=== PATIENT | female | born 1960 | race Caucasian/White ===

== ENCOUNTER 2016-09-13 06:26 | Inpatient (IN) | payer BC ==
--- NOTE | 2016-08-30 20:45 | HP ---
PREOPERATIVE HISTORY AND PHYSICAL: DATE OF ADMISSION: 09/13/16 - This patient is scheduled for AA admission by Dr. Marvin on 09/13/16. DATE OF PREOPERATIVE HISTORY AND PHYSICAL EXAMINATION: 08/29/16. ATTENDING SURGEON: Dr. Devin Marvin (dictated by Caridad Florian NP). CHIEF COMPLAINT: Obesity. HISTORY OF PRESENT ILLNESS: The patient is a 56-year-old female with a body mass index of 37.7 and obesity-related comorbidities of type 2 diabetes; obstructive sleep apnea, requiring CPAP; gastroesophageal reflux disease; back pain; stress incontinence; bilateral knee pain. She has tried and failed attempts at weight loss with conventional means and is seeking bariatric surgery as a more permanent solution to her obesity and comorbidities. She completed medically-supervised weight loss at [facility] and has completed all of the necessary preoperative diagnostic evaluations and testing and has been deemed an appropriate candidate by Dr. Marvin to proceed with laparoscopic Solitario-en-Y gastric bypass and laparoscopic cholecystectomy. Dr. Marvin has described the nature of the surgical procedures, the expected results of the surgery, the relevant risks, benefits, and alternatives, and today, I reviewed the typical hospitalization as well as the expected postoperative care and recovery including adherence to the stages of the postoperative diet, exercise, vitamin and mineral supplementation, and followup appointments at [facility] and [facility]. The patient has had a chance to ask questions and stated that she understands the information and is satisfied with the answers given to her questions. She will sign surgical consent on the day of surgery. She started her preoperative diet on 08/30/16. PAST MEDICAL HISTORY: Significant for type 2 diabetes, diagnosed in spring 2015 ; hypothyroidism; obstructive sleep apnea, requiring CPAP; asthma; gastroesophageal reflux disease; stress incontinence; bilateral knee pain and back pain. PAST SURGICAL HISTORY: D and C, March 2015; carpal tunnel release, October 2013 ; right knee arthroscopy, May 2012; right leg venous ablation, June 2009; right fourth hammertoe surgery, August 2003; excision of left wrist ganglion, September 1999; tubal ligation, June 1987. MEDICATIONS: 1. Levothyroxine 50 mcg daily in the morning. 2. Losartan 25 mg p.o. daily in the morning. 3. Metformin 500 mg p.o. b.i.d. and I instructed the patient to hold metformin on 09/12/16 and on the morning of surgery and if her blood sugar is falling below 80 consistently, to discuss holding the metformin during the preoperative diet with her primary care provider. 4. Vitamin D3 daily. 5. Nasonex daily. 6. Vitamin B12 500 mcg every other day. 7. Pataday eye drops daily. ALLERGIES: No known drug allergies. Tylenol with Codeine has caused nausea and she does have seasonal allergies. FAMILY HISTORY: Significant for mother with thyroid disease, diabetes, hypertension, lung cancer, and heart disease. Father with history of heart disease. The patient's sister has a history of hypertension. There is a family history of diabetes in a sister and a history of stroke and her brother had melanoma. The patient's son and daughter also have diabetes and hypertension. No known anesthesia complications, bleeding tendencies, or clotting disorders. SOCIAL HISTORY: She is and lives with her significant other. 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 She exercises by walking 30 minutes a day. She is a former smoker. She denies the use of alcohol or other substances. REVIEW OF SYSTEMS: She denies any chest pain, pressure, palpitations, or unusual shortness of breath. She denies any history of deep vein thrombosis or pulmonary embolism. She denies any previous anesthesia complications. She has a history of mild asthma with no recent flare-ups. She has a history of gastroesophageal reflux and underwent upper endoscopy which revealed esophagitis and a small hiatal hernia. She had an abdominal ultrasound, which revealed a 3.5-cm gallstone and she will undergo laparoscopic cholecystectomy at the same setting as the bariatric procedure. Her upper GI series revealed a small hiatal hernia and a well-defined Schatzki's ring. She denies any bleeding tendencies and has never received a blood transfusion. She denies any dysuria and denies any chronic constipation. PHYSICAL EXAMINATION GENERAL SURVEY: The patient is a 56-year-old female, obese, well developed, in no acute distress. VITAL SIGNS: Height 70 inches, weight 263 pounds, body mass index 37.7, blood pressure 118/74, pulse 68 and regular, respiratory rate 16, temperature 97.2 tympanic. HEENT: Benign. NECK: Supple. No cervical lymphadenopathy. No thyromegaly. BACK: No CVA tenderness. LUNGS: Breath sounds bilaterally clear and equal. HEART: Regular rate and rhythm. No murmurs or rubs appreciated. ABDOMEN: Obese, soft, and nondistended. Nontender throughout. No obvious masses or organomegaly. Negative Smith's sign. No umbilical hernia. PELVIC AND RECTAL: Exams deferred. EXTREMITIES: Warm without edema or skin ulcerations. NEUROLOGIC: Alert and oriented x3. Steady gait. SKIN: Warm, dry, intact. IMPRESSION: 1. Morbid obesity. 2. Cholelithiasis. 3. Type 2 diabetes. 4. Obstructive sleep apnea, requiring CPAP. 5. Gastroesophageal reflux disease. PLAN: AA admission to Dr. Marvin' service on 09/13/16, for laparoscopic Solitario-en-Y gastric bypass and laparoscopic cholecystectomy. CARIDAD FLORIAN NP CC: Dr. [facility], [facility]; Myrtle Brown NP * [id number]/[facility] #: [id number] [facility]PIT[facility]evyn
[~2016-09-13 06:26] MED LIST: Buffered Lidocaine 1% SYR 3ML* 3 ML/SYR SYRINGE INTRADERM ONE; Dexamethasone IV* 4 MG/ML 1 ML (4 MG) IV SLOW PU ONE; Famotidine IV* 10 MG/ML 2 ML (20 mg) IV ONE
[2016-09-13] MEDS ORDERED: Famotidine IV* 10 MG/ML 2 ML (20 mg) ONE (06:47)
[2016-09-13] MEDS ORDERED: Dexamethasone IV* 4 MG/ML 1 ML (4 MG) ONE (06:48)
[2016-09-13] MEDS ORDERED: Heparin VIAL(*) 5000 UNITS/ML VIAL (FIVE THOUSAND) ONE (06:48)
[2016-09-13] MEDS ORDERED: ceFAZolin 1 GM in Dextrose (*) 1 GM/50 ML BAG IVPB ONE (06:48)
[2016-09-13] MEDS ORDERED: Buffered Lidocaine 1% SYR 3ML* 3 ML/SYR SYRINGE ONE (06:48)
[2016-09-13] MEDS ORDERED: ceFAZolin 2 GM PREMIX (*) 2 GM/50 ML BAG IVPB ONE (06:48)
[2016-09-13] MEDS ORDERED: Clindamycin 900 MG IVPREMIX(* 900 MG/50 ML SDV IV ONE (07:18)
[2016-09-13] MEDS ORDERED: Methylene Blue 1%* 10 ML VIAL ONE (07:23)
[2016-09-13] MEDS ORDERED: Bupivacaine 0.5% W/EPI SDV* 30 ML VIAL ONE (07:24)
[2016-09-13] MEDS ORDERED: Lidocaine 2% MPF* 2 ML VIAL ONE (07:32)
[2016-09-13] MEDS ORDERED: Propofol* 10 MG/ML 20 ML BTL IV PUSH ONE (07:32)
[2016-09-13] MEDS ORDERED: Midazolam* 1 MG/ML 5 ML VIAL (5 MG) ONE (07:33)
[2016-09-13] MEDS ORDERED: Rocuronium* 10 MG/ML VIAL ONE (07:33)
[2016-09-13] MEDS ORDERED: fentaNYL* 50 MCG/ML 5 ML VIAL (250 MCG VIAL) ONE (07:33)
[2016-09-13] MEDS ORDERED: EPHEDrine (Pressors)* 50 MG/ML VIAL ONE (08:22)
[2016-09-13] MEDS ORDERED: Morphine INJ* 2 MG/ML 1 ML CARPUJECT IV PRN (08:42)
[2016-09-13] MEDS ORDERED: Scopolamine 1.5 mg* PATCH TRANSDERM PRN (08:42)
[2016-09-13] MEDS ORDERED: Acetaminophen IV 1GM/100ML * 100 ML IVPB ONE (08:42)
[2016-09-13] MEDS ORDERED: PROCHLORPERAZINE INJ 5 MG/ML 2 ML VIAL IV PRN (08:42)
[2016-09-13] MEDS ORDERED: Ketorolac INJ* 30 MG/ML 1 ML VIAL ONE (09:16)
[2016-09-13] MEDS ORDERED: fentaNYL* 50 MCG/ML 2 ML VIAL (100 MCG VIAL) ONE ×2 (09:17→11:54)
[2016-09-13] MEDS ORDERED: Ondansetron INJ* 2 MG/ML VIAL ONE ×2 (10:01→13:12)
[2016-09-13] MEDS ORDERED: HYDROcodone/ACET. 7.5/325 LIQ* 15 ML UDC PO PRN (10:37)
[2016-09-13] MEDS ORDERED: diPHENhydraMINE IV* 50 MG/ML 1 ml VIAL (BENADRYL) SLOW PUSH PRN (10:37)
[2016-09-13] MEDS ORDERED: Ondansetron INJ* 2 MG/ML VIAL IV PRN (10:37)
[2016-09-13] MEDS ORDERED: HYDROmorphone INJ* 1 MG/ML CARPUJECT SYRINGE IV PRN (10:37)
[2016-09-13] MEDS ORDERED: Acetaminophen ADULT LIQ* 650 MG/20.3 ML UDC PO PRN (10:37)
[2016-09-13] MEDS ORDERED: Fluticasone NASAL SPRAY 50MCG* 16 gm SPRAY BTL BOTH NARES PRN (10:40)
[2016-09-13] MEDS ORDERED: Acetaminophen IV 1GM/100ML * 100 ML ONE (10:40)
[2016-09-13] MEDS ORDERED: Albuterol HFA INHALER* 8 gm MDI INH PRN (10:40)
--- NOTE | 2016-09-13 10:45 | SURGPN ---
Brief Operative Note - Surgery Procedures: PREOP DX: MORBID OBESITY AND GALLSTONES POSTOP DX: SAME PROC: LRYGB AND LAP LETY SURG: MECENAS ASSIST: MARSHAL REDMANS: FLAQUITO/STEVEN EBL: 50 ML IVF: LR SPEC: GB DRAIN: NONE COMPL: NONE COND: STABLE TO RR EXTUBATED
[2016-09-13] MEDS ORDERED: PROCHLORPERAZINE INJ 5 MG/ML 2 ML VIAL ONE (11:20)
[2016-09-13] MEDS ORDERED: Scopolamine 1.5 mg* PATCH ONE (11:40)
[2016-09-13] MEDS: fentaNYL* 50 MCG/ML 2 ML VIAL (100 MCG VIAL) IV PRN ×2 (11:56→12:19)
[2016-09-13] MEDS: Insulin REGULAR(*) 1 UNITS UNIT SUBCUT SCH ×3 (13:36→23:55)
[2016-09-13] MEDS: Heparin VIAL(*) 5000 UNITS/ML VIAL (FIVE THOUSAND) SUBCUT SCH ×2 (14:28→22:14)
[2016-09-13] MEDS: Famotidine IV * 20 MG in NS 0.9% 100 ML* 100 ML IVPB SCH (21:00)
[2016-09-14] MEDS: Ketorolac INJ* 30 MG/ML 1 ML VIAL IV PRN ×2 (03:34→19:16)
[2016-09-14] MEDS: Heparin VIAL(*) 5000 UNITS/ML VIAL (FIVE THOUSAND) SUBCUT SCH ×3 (06:20→22:32)
[2016-09-14] MEDS: Insulin REGULAR(*) 1 UNITS UNIT SUBCUT SCH ×4 (06:23→23:57)
[2016-09-14] MEDS ORDERED: Famotidine IV* 10 MG/ML 2 ML (20 mg) ONE ×2 (09:33→21:20)
[2016-09-14] MEDS: Famotidine IV * 20 MG in NS 0.9% 100 ML* 100 ML IVPB SCH ×2 (09:37→21:26)
[2016-09-14] MEDS: Olopatadine 0.2% (NF) 1 DROP BTL BOTH EYES SCH (09:38)
[2016-09-14] MEDS: Lidocaine PATCH 5%* 1 PATCH TRANSDERM SCH (09:38)
[2016-09-14] MEDS: D5W 1/2 NS KCl 20 Meq 1000 ML* 1,000 ML IV SCH ×2 (11:15→19:15)
--- NOTE | 2016-09-14 11:58 | PN ---
Progress Note - Progress Note SOAP: Subjective: Having no N/V or pain today. Discussed surgery. Objective: Vital Signs Temp 98.0 F 09/14/16 07:19 Pulse 54 09/14/16 07:19 Resp 18 09/14/16 08:00 BP 128/47 09/14/16 07:19 Pulse Ox 98 09/14/16 08:15 Intake & Output 09/13/16 09/14/16 09/14/16 18:59 06:59 18:59 Intake Total 3025 2070 918 Output Total 1150 800 Balance 1875 1270 918 Intake: IV Fluids 2950 1965 858 CEFAZOLIN 3GM 100 CLINDAMYCIN 900 MG 50 LR 2800 1965 858 IVPB 75 105 60 LR 75 Pepcid 105 60 Oral 0 0 Output: Urine 350 Ramirez 1150 450 NAD Abd: dressings c/d/i; soft; min tender. Laboratory Results - last 24 hr 09/13/16 09/13/16 09/13/16 11:10 17:57 23:51 POC Glucose (mg/dL) 183 H 162 H 128 H 09/14/16 06:15 POC Glucose (mg/dL) 94 Assessment: POD#1 s/p LRYGB/LapCCY. Doing well. Plan: Diet advanced. Ramirez out. Home AM.
[2016-09-14] MEDS ORDERED: Levothyroxine TAB* 50 MCG TAB PO SCH (21:00)
[2016-09-15] MEDS: D5W 1/2 NS KCl 20 Meq 1000 ML* 1,000 ML IV SCH (03:36)
--- NOTE | 2016-09-15 04:11 | OP ---
OPERATIVE REPORT: DATE OF OPERATION: 09/13/16 - SSU 331-01 DATE OF : 56 SURGEON: Devin Marvin MD IMAGING TECHNICIAN: Shady Walsh MD ANESTHESIOLOGIST: Dr. Aparicio. ANESTHESIA: General endotracheal. PRE-OP DIAGNOSIS: Morbid obesity and gallstones. POST-OP DIAGNOSIS: Morbid obesity and gallstones. OPERATIVE PROCEDURE: Laparoscopic Solitario-En-Y gastric bypass and laparoscopic cholecystectomy. ESTIMATED BLOOD LOSS: Minimal. IV FLUIDS: Crystalloids. SPECIMENS: Gallbladder. DRAINS: None. COMPLICATIONS: None. COUNTS: Instrument, needle, and sponge counts were correct. DESCRIPTION OF PROCEDURE: The patient was brought to the operating room and was placed on the table supine. Sequential compression devices were placed on both lower extremities. General anesthesia was administered. A Ramirez catheter was placed. She was positioned and padded appropriately. She was prepped and dapped in the usual sterile fashion. She was administered appropriate intravenous antibiotics. Time-out was performed. Local anesthetic was infiltrated into the skin and soft tissue prior to making the incision. Entry to the abdomen was through a left upper quadrant incision accommodating a 12-mm optical trocar. After accessing the peritoneal cavity, carbon dioxide was insufflated to a pressure of 15 mmHg. Under direct visualization, a 12-mm trocar was placed in the right upper quadrant. A 5-mm trocar was placed in the right upper quadrant medially and inferior to this, a 5 -mm trocar was placed in the subxiphoid position and an additional 12-mm trocar was placed in the supraumbilical midline. The gallbladder was addressed first. This appeared to have chronic inflammatory changes. It was grasped with the fundus and retracted superiorly and the infundibulum was identified. The adhesions to this were taken down using a combination of sharp and blunt dissection. The peritoneum investing the gallbladder was dissected free after being scored with cautery and peeled away. The infundibulocystic triangle was dissected out medially and laterally, the borders of the gallbladder were identified and the cystic artery was identified as well. All structures were dissected out and critical view obtained prior to clipping the cystic duct and cystic artery. After clipping these structures and dividing them, the gallbladder was freed from its attachments to the liver bed using the Hook cautery staying in an avascular plain. The gallbladder was placed into an endoscopic retrieval bag and positioned above the liver for removal at the end of the case. A 5-mm trocar was then placed in the left lower quadrant laterally and a Pete liver retractor was placed percutaneously in the subxiphoid position used to elevated the left lobe of the liver. Gastric anatomy appeared normal. The mobilization of the stomach at the angle of His was performed bluntly exposing the left ilda of diaphragm. Next, perigastric dissection was undertaken on the lesser curvature to enter the lesser sac and then with several firing of the Endo SEMAJ staple with prince cartridges, the gastric pouch was created approximating 20 mL volume. The staple lines were noted to be intact and hemostatic. The omentum was mobilized from the lower midline and retracted superiorly along with the transverse colon and ligament of Treitz was identified. The jejunum was measured out approximately 40 cm and at this point , it was tacked to the left lateral staple line on the gastric pouch with interrupted 3-0 silks. The gastrojejunal anastomosis was then performed with the Endo SEMAJ stapler using a 30-mm prince cartridge. The anastomosis was completed by closing the common gastroenterotomy with the use of a 3-0 Maxon in running. The closure was performed over a 36-Latvian gastric lavage tube. After completing the anastomosis, the bowel was divided to the left side of the gastric pouch with the Endo SEMAJ stapler with a prince cartridge and then the anastomosis was tested with methylene blue dye solution instilled through the gastric lavage tube. No leaks were identified. The Solitario-limb was then measured out 75 cm and brought up to the biliopancreatic limb, where a jejunojejunostomy was created with a 60-mm prince stapler with closure of that enterotomy with 3-0 Maxon in a running fashion. The mesenteric defect was closed with 3-0 silk in a running fashion. The gallbladder was then retrieved through the supraumbilical site, which was then closed with 0 Polysorb using Endo Close device. Having assured hemostasis, the ports were removed under direct visualization and carbon dioxide was released. The skin incisions were all closed with roberto and dressings were applied. The patient tolerated the procedure well. She was extubated and transferred to the recovery room in stable condition. CC: LONA Nagy* [id number]/[facility] #: [id number] ZEINAB
[2016-09-15] MEDS: Heparin VIAL(*) 5000 UNITS/ML VIAL (FIVE THOUSAND) SUBCUT SCH (05:41)
[2016-09-15] MEDS: Insulin REGULAR(*) 1 UNITS UNIT SUBCUT SCH (05:45)
[2016-09-15 06:55] VITALS: BP 141/59
[2016-09-15] MEDS: Olopatadine 0.2% (NF) 1 DROP BTL BOTH EYES SCH (08:46)
[2016-09-15] MEDS ORDERED: Famotidine IV* 10 MG/ML 2 ML (20 mg) ONE (08:49)
[2016-09-15] MEDS: Famotidine IV * 20 MG in NS 0.9% 100 ML* 100 ML IVPB SCH (08:54)
[2016-09-15] MEDS: Lidocaine PATCH 5%* 1 PATCH TRANSDERM SCH (08:54)
--- NOTE | 2016-09-15 09:05 | PN ---
Progress Note - Progress Note Note: S: POD #2. Doing well. No sig pain. Donta arun clears to goal. No N/V or regurg; passing flatus. Ambulating. Voiding well. O: Vital Signs - 8 hr 09/15/16 09/15/16 03:24 06:43 Temperature 98.0 F 98.0 F Pulse Rate 52 52 Respiratory 18 16 Rate Blood Pressure 149/85 141/59 (mmHg) O2 Sat by Pulse 99 97 Oximetry Intake and Output Last 24 Hours 09/13/16 09/14/16 09/15/16 09/16/16 06:59 06:59 06:59 06:59 Intake Total 5095 3687 Output Total 1950 3050 600 Balance 3145 637 -600 Weight 246 lb Intake: IV Fluids 4915 2842 CEFAZOLIN 3GM 100 CLINDAMYCIN 900 MG 50 D51/2NS 20KCL 1984 LR 4765 858 IVPB 180 165 LR 75 Pepcid 105 165 Oral 0 680 Output: Urine 350 3050 600 Ramirez 1600 Heart: reg (sl atul) Lungs: clear Abd: +BS; lap incisions w/ mod ecchymosis; soft; nontender fs glucoses good A/P: s/p lap gastric bypass and cholecystectomy, doing well. OK for d/c home. Instructions reviewed. Office f/u 1 wk.
--- NOTE | 2016-09-16 01:18 | DS ---
DISCHARGE SUMMARY: DATE OF ADMISSION: 09/13/16 DATE OF DISCHARGE: 09/15/16 ATTENDING PHYSICIAN: Devin Marvin MD HOSPITAL COURSE: Please refer to admission history and physical for admission details. The patient was taken to the operating room on 09/13/16 and underwent laparoscopic Solitario-En-Y gastric along with laparoscopic cholecystectomy. She has had an otherwise uneventful postoperative course and as of the morning of discharge, was tolerating 120 cc of clear liquids per hour. Pain is well controlled. Fingersticks glucoses have run between 108 and 128 over the last 24 hours. PHYSICAL EXAMINATION: Vital signs: T-max 99.6, temperature this morning 98, blood pressure 141/59, pulse 52, respirations 16, and room air saturation 97%. General: Well nourished and in no acute distress, sitting up at the edge of the bed. Lungs: Clear to auscultation. No rales or wheezes. Heart: Regular rate and rhythm. Mildly bradycardiac. Abdomen: Laparoscopic incision sites with a moderate amount of ecchymosis around the 3 large incisions. No active bleeding or drainage. Bowel sounds are present, and soft and nontender to palpation. IMPRESSION: Status post laparoscopic Solitario-En-Y gastric with cholecystectomy, doing well. PLAN: Discharge home today. She will resume her usual levothyroxine, but hold metformin and losartan. She will monitor her blood pressure at home. She will follow the prescribed bariatric dietary guidelines and we will set up a followup for her in the office within approximately 1 week. PEDRO LOPES CC: LONA Nagy at [facility]* [id number]/[facility] #: [id number] ZEINAB
[2016-09-16] MEDS ORDERED: Scopolamine PATCH Remove* 1 NOTE MISC PATCH OFF ONE (08:43)
== END 2016-09-15 11:10 | disposition home or self-care (01) | DRG 403 ==
LOC: AA 06:26 → SSU 13:11
PROVIDERS: ADMIT Surgery; ATTEND Surgery
PROC: 0D164ZA Bypass Stomach to Jejunum, Percutaneous Endoscopic Approach (ICD-10-PCS; principal; 2016-09-13 08:00)
PROC: 0FT44ZZ Resection of Gallbladder, Percutaneous Endoscopic Approach (ICD-10-PCS; 2016-09-13 08:00)
DX: E66.01 Morbid (severe) obesity due to excess calories (principal); I10 Essential (primary) hypertension; Z68.37 Body mass index [BMI] 37.0-37.9, adult; E11.9 Type 2 diabetes mellitus without complications; G47.33 Obstructive sleep apnea (adult) (pediatric); K21.9 Gastro-esophageal reflux disease without esophagitis; M54.9 Dorsalgia, unspecified; N39.3 Stress incontinence (female) (male); M25.562 Pain in left knee; M25.561 Pain in right knee; E03.9 Hypothyroidism, unspecified; J45.909 Unspecified asthma, uncomplicated; Z88.8 Allergy status to other drugs, medicaments and biological substances; Z88.5 Allergy status to narcotic agent; Z83.3 Family history of diabetes mellitus; Z82.49 Family history of ischemic heart disease and other diseases of the circulatory system; Z80.1 Family history of malignant neoplasm of trachea, bronchus and lung; Z82.3 Family history of stroke; Z80.8 Family history of malignant neoplasm of other organs or systems; Z87.891 Personal history of nicotine dependence; K44.9 Diaphragmatic hernia without obstruction or gangrene; K80.20 Calculus of gallbladder without cholecystitis without obstruction
CPT/HCPCS: 88304; 94760; A9270-GY; C1776; J0690; J0780; J1100; J1170; J1644; J1885; J2250; J2405; J2704; J3010

== ENCOUNTER 2022-08-02 07:30 | Inpatient (IN) ==
[~2022-08-02 07:30] MED LIST changes: -Buffered Lidocaine 1% SYR 3ML* 3 ML/SYR SYRINGE INTRADERM ONE; +Buffered Lidocaine 1% SYRIN 1 ml INTRADERM ONE; -Dexamethasone IV* 4 MG/ML 1 ML (4 MG) IV SLOW PU ONE; -Famotidine IV* 10 MG/ML 2 ML (20 mg) IV ONE; +Lactated Ringers 1000 ml BAG 1,000 ML IV SCH
[2022-08-02] MEDS ORDERED: Lidocaine 2% PF 5 ML VIAL ONE (09:54)
[2022-08-02] MEDS ORDERED: Propofol 10 MG/ML 20 ML BTL ONE (09:54)
[2022-08-02] MEDS ORDERED: Ondansetron 4 mg VIAL 2 MG/ML 2 ml VIAL ONE ×3 (10:26→15:14)
[2022-08-02] MEDS ORDERED: ceFAZolin 2 GM PREMIX 2 GM/50 ML BAG ONE (10:45)
[2022-08-02] MEDS ORDERED: Ropivacaine 5 MG/ML 20 ML VIAL 0.5% (100 MG) ONE (11:33)
[2022-08-02] MEDS ORDERED: Midazolam 2 mg/2 ml VIAL 1 mg/ml 2 ml VIAL (2 mg) ONE ×2 (11:46→12:22)
[2022-08-02] MEDS ORDERED: ROPIVACAINE 5 MG/ML 30 ML BTL (0.5%) ONE (11:46)
[2022-08-02] MEDS ORDERED: fentaNYL 100 mcg/2 ml 50 MCG/ML VIAL ONE ×3 (11:46→14:21)
[2022-08-02] MEDS ORDERED: Ketamine HCL 50 mg/ml 10 ml VIAL (500 MG) ONE (12:37)
[2022-08-02] MEDS ORDERED: Prochlorperazine 5 mg/ml 2 ml VIAL (10 mg) IV PRN (12:53)
[2022-08-02] MEDS ORDERED: Naloxone 0.4 mg VIAL 0.4 mg/ml 1 ml VIAL IV PRN (12:53)
[2022-08-02] MEDS ORDERED: fentaNYL 100 mcg/2 ml 50 MCG/ML VIAL IV PRN (12:53)
[2022-08-02] MEDS ORDERED: Ondansetron 4 mg VIAL 2 MG/ML 2 ml VIAL IV PRN ×2 (12:53→15:17)
[2022-08-02] MEDS ORDERED: Acetaminophen IV 1 GM/100ML 1,000 MG/100 ML BAG IV ONE (12:55)
[2022-08-02] MEDS ORDERED: Glycopyrrolate IV 0.2 MG/ML 1 ML VIAL ONE ×2 (13:23→13:26)
[2022-08-02] MEDS ORDERED: HYDROmorphone 0.5 MG/0.5 ML SYRINGE ONE (14:47)
[2022-08-02] MEDS ORDERED: Morphine 2 MG/ML SYRINGE IV PRN (15:17)
[2022-08-02] MEDS ORDERED: Lactulose 30 ml UDC PO PRN (15:17)
[2022-08-02] MEDS ORDERED: Magnesium Hydroxide LIQ 30 ML UDC PO PRN (15:17)
[2022-08-02] MEDS ORDERED: Ondansetron ODT 4 mg TAB 4 MG TAB PO PRN (15:17)
[2022-08-02] MEDS: Lactated Ringers 1000 ml BAG 1,000 ML IV SCH (16:35)
[2022-08-02] MEDS ORDERED: Prochlorperazine 5 mg/ml 2 ml VIAL (10 mg) ONE (16:51)
[2022-08-02] MEDS: ceFAZolin 1 GM ADVAN 1 GM in NS 0.9% 50 ML 50 ML IVPB SCH (21:01)
[2022-08-02] MEDS: Magnesium Hydroxide LIQ 30 ML UDC PO SCH (21:06)
[2022-08-03] MEDS: Lactated Ringers 1000 ml BAG 1,000 ML IV SCH (03:10)
[2022-08-03] MEDS: ceFAZolin 1 GM ADVAN 1 GM in NS 0.9% 50 ML 50 ML IVPB SCH ×2 (05:49→12:01)
[2022-08-03 06:58] LABS: Hematocrit 32 % (35-47); Hemoglobin 10.8 g/dL (12.0-16.0); Mean Platelet Volume 8.2 fL (7.4-10.4); Platelet Count 222 10^3/uL (150-450)
[2022-08-03 07:14] LABS: Calcium 8.4 mg/dL (8.6-10.3); Potassium 3.9 mmol/L (3.5-5.0); eGFR CKD-EPI 94.9 (>60)
[2022-08-03] MEDS: Magnesium Hydroxide LIQ 30 ML UDC PO SCH (08:18)
[2022-08-03] MEDS ORDERED: Vitamin THERAPEUTIC TAB PO SCH (09:00)
[2022-08-03 10:44] VITALS: BP 113/67
== END 2022-08-03 12:30 | disposition home or self-care (01) | DRG 302 ==
LOC: AA 10:25 → INTOOBSV 10:25 → SSU 15:17
PROVIDERS: ADMIT Orthopaedic Surgery Adult Reconstructive Orthopaedic Surgery; ATTEND Orthopaedic Surgery Adult Reconstructive Orthopaedic Surgery